=== PATIENT | female | born 1960 | race Caucasian/White ===

== ENCOUNTER 2018-08-17 01:12 | Emergency (ER) | payer OTHER ==
[~2018-08-17] VITALS: Ht 157.5 cm; Wt 76.5 kg
[2018-08-17 01:24] VITALS: Ht 157.5 cm; Wt 76.5 kg
[2018-08-17] MEDS ORDERED: IBUPROFEN 600 MG TAB PO ONE (05:30)
[2018-08-17] MEDS ORDERED: ACET-141 PO (06:50)
[2018-08-17] MEDS ORDERED: IBUP-1542 PO (06:50)
--- NOTE | 2018-08-17 06:55 | ERD ---
ER Documentation Chief Complaint Chief Complaint pain/swelling right foot/great toe, heavy object fell on foot yesterday mor ROS All systems reviewed and are negative except as per history of present illness. Medications Home Meds Active Scripts Ibuprofen* (Motrin*) 600 Mg Tab, 600 MG PO Q6H PRN for PAIN AND OR ELEVATED TEMP, #30 TAB Prov:GARY WALKER DO 08/17/18 Acetaminophen* (Acetaminophen*) 500 MG Extra Strength Tablet, 500 MG PO Q4H PRN for PAIN AND OR ELEVATED TEMP, #30 TAB Prov:GARY WALKER DO 08/17/18 Allergies Allergies: Coded Allergies: Penicillins (Verified Allergy, Unknown, swelling, 08/17/18) PMhx/Soc Medical and Surgical Hx: pt denies Medical Hx History of Surgery: Yes (2008 APPENDECTOMY ) Anesthesia Reaction: No Hx Alcohol Use: No Hx Substance Use: No Hx Tobacco Use: No Smoking Status: Never smoker Physical Exam Vitals Vital Signs Date Temp Pulse Resp B/P (MAP) Pulse Ox O2 O2 Flow FiO2 Time Delivery Rate 08/17/18 97.8 88 18 117/66 97 01:24 (83) Physical Exam Const: No acute distress Head: Atraumatic Eyes: Normal Conjunctiva ENT: Normal External Ears, Nose and Mouth. Neck: Full range of motion. No meningismus. Resp: Clear to auscultation bilaterally Cardio: Regular rate and rhythm, no murmurs Abd: Soft, non tender, non distended. Normal bowel sounds Skin: No petechiae or rashes Back: No midline or flank tenderness Ext: No cyanosis, or edema Neur: Awake and alert Psych: Normal Mood and Affect Results 24 hrs Current Medications Medications Dose Sig/Kaiden Start Time Status Last (Trade) Ordered Route PRN Stop Time Admin Dose Reason Admin Ibuprofen 600 mg ONCE ONCE 08/17/18 DC 08/17/18 (Motrin) PO 05:30 05:09 08/17/18 05:31 Departure Diagnosis: Primary Impression: Toe fracture Encounter type: initial encounter Toe: great toe Fracture type: closed Phalanx: distal Fracture alignment: nondisplaced Laterality: right Qualified Codes: S92.424A - Nondisplaced fracture of distal phalanx of right great toe, initial encounter for closed fracture Condition: Fair Patient Instructions: Finger and Toe Fractures (Broken Finger or Toe) Referrals: GADIEL YANCEY (PCP) Additional Instructions: Call your primary care doctor TOMORROW for an appointment during the next 1-2 days.See the doctor sooner or return here if your condition worsens before your appointment time. GARY WALKER DO Aug 17, 2018 06:55
[2018-08-17 07:32] VITALS: BP 122/59; PULSE 66; RESP 16
== END 2018-08-17 07:33 | disposition home or self-care (01) ==
LOC: FTE 01:12
DX: S92.424A Nondisplaced fracture of distal phalanx of right great toe, initial encounter for closed fracture (principal); W20.8XXA Other cause of strike by thrown, projected or falling object, initial encounter; Y92.9 Unspecified place or not applicable
CPT/HCPCS: 73630; Z7502; Z7610